=== PATIENT | male | born 1975 | race African-American/Black ===

== ENCOUNTER 2017-10-09 17:32 | Emergency (ER) | payer OTHER ==
[~2017-10-09] VITALS: Ht 175.3 cm; Wt 108.9 kg
[~2017-10-09 17:32] MED LIST: BAYER CHEWABLE81 MG PO; GLUCOPHAGE1000 MG PO; PRAVASTATIN SOD20 MG PO; PRINIVIL5 MG PO; PROMETHAZINE-C120 ML PO; ZPAK PO
[2017-10-09] MEDS ORDERED: GLIMEPIRIDE1 MG PO (18:41)
[2017-10-09 18:44] LABS: URINE BLOOD 3+ (Negative); URINE GLUCOSE-RANDOM* NEGATIVE (Negative); URINE KETONES NEGATIVE (Negative); URINE LEUKOCYTES-REFLEX NEGATIVE (Negative); URINE NITRITE-REFLEX NEGATIVE (Negative); URINE PROTEIN (DIPSTICK) 2+ (Negative); URINE SPECIFIC GRAVITY 1.025 (1.005-1.035)
[2017-10-09 18:46] LABS: ICTOTEST (BILI CONFIRMATORY) Negative (Negative); URINE BILIRUBIN NEGATIVE (Negative); URINE CLARITY CLOUDY; URINE COLOR BROWN
[2017-10-09 18:59] LABS: ABSOLUTE NEUTROPHILS 10.5 thou/uL (1.4-8.2); BASOPHILS 0.7 % (0.0-2.0); EOSINOPHILS 0.4 % (0.0-3.0); HEMATOCRIT 39.1 % (42.0-52.0); HEMOGLOBIN 13.5 gm/dL (14.0-18.0); LYMPHOCYTES 15.5 % (24.0-44.0); MCH 31.4 pg (26.0-34.0); MCHC 34.6 g/dL (28.0-37.0); MCV 90.7 fL (80.0-100.0); MONOCYTES 3.1 % (1.0-8.0); PLATELET COUNT 275 thou/uL (150-400); POLYS 80.3 % (36.0-66.0); RBC 4.31 mil/uL (4.50-6.00); RDW 12.7 % (10.5-14.5); WBC 13.1 thou/uL (4.0-11.0)
[2017-10-09 19:03] LABS: BACTERIA-REFLEX 1-9 Few /HPF (None Seen); CASTS None Seen /LPF (None Seen); CRYSTALS None Seen /LPF (None Seen); MUCUS 4-6 Moderate strn/LPF (None Seen); SQUAMOUS None Seen /LPF (0-3); URINE RBC >20 Many /HPF (0-2); URINE WBC-REFLEX 0-5 Rare /HPF (0-5)
[2017-10-09 19:08] LABS: CALCIUM 9.3 mg/dL (8.5-10.1); CREATININE 1.4 mg/dL (0.7-1.3); POTASSIUM 4.1 mmol/L (3.5-5.1)
[2017-10-09] MEDS ORDERED: NORCO 5-325 TA1 EACH PO (20:30)
[2017-10-09] MEDS ORDERED: FLOMAX0.4 MG PO (20:31)
[2017-10-09] MEDS ORDERED: ONDANSETRON HCL4 M2 PO (20:31)
[2017-10-09 20:59] VITALS: BP 118/77
== END 2017-10-09 21:09 | disposition home or self-care (01) ==
LOC: ER 17:32
PROVIDERS: Emergency Medicine; Nurse Practitioner Family
DX: N20.0 Calculus of kidney (principal); E86.0 Dehydration; F17.210 Nicotine dependence, cigarettes, uncomplicated; E11.9 Type 2 diabetes mellitus without complications